=== PATIENT | female | born 1995 | race Caucasian/White ===

== ENCOUNTER 2017-04-11 14:15 | Emergency (ER) | payer BC ==
[2017-04-11 14:46] VITALS: BP 123/83
--- NOTE | 2017-04-16 07:56 | UC ---
Complaint Female HPI - HPI Summary HPI Summary: 21 YEAR OLD FEMALE THAT PRESENTS WITH SEVERE LLQ > RLQ ABDOMINAL PAIN. I WILL SEND HER TO ER TO RULE OUT TORSION VS ECTOPIC VS APPY. - History Of Current Complaint Chief Complaint: UCGI Stated Complaint: STOMACH PAIN NAUSEA Time Seen by Provider: 04/11/17 14:48 Hx Obtained From: Patient Hx Last Menstrual Period: unknown Onset/Duration: Sudden Onset Severity Initially: Moderate Severity Currently: Moderate Pain Intensity: 5 Pain Scale Used: 0-10 Numeric - 5 Character: Sharp Aggravating Factor(s): Movement Associated Signs And Symptoms: Positive: Negative - Allergies/Home Medications Allergies/Adverse Reactions: Allergies Allergy/AdvReac Type Severity Reaction Status Date / Time Meningococcal Vaccines Allergy Intermediate redness Verified 04/11/17 16:49 and swelling at injection site. Home Medications: Home Medications ALPRAZolam TAB* [Xanax TAB*] 0.5 mg PO TID PRN 04/11/17 [History Confirmed 04/11] Vortioxetine HBr [Brintellix] 50 mg PO QPM 04/11/17 [History Confirmed 04/11/17] Zolpidem TAB* [Ambien TAB*] 5 mg PO BEDTIME PRN 04/11/17 [History Confirmed ] PMH/Surg Hx/FS Hx/Imm Hx Previously Healthy: Yes - Surgical History Surgical History: Yes Surgery Procedure, Year, and Place: L ACL REPLACEMENT - Family History Known Family History: Positive: None, Cardiac Disease - MGF and maternal uncle, Hypertension - parents, Diabetes - Dad, Other - Mom with DJD and stenosis. - Social History Alcohol Use: Occasionally Substance Use Type: Marijuana Substance Use Comment - Amount & Last Used: 02/2017 Smoking Status (MU): Current Some Day Smoker - Immunization History Most Recent Influenza Vaccination: 2014 Most Recent Tetanus Shot: UTD Most Recent Pneumonia Vaccination: has not received Vaccination Up to Date: Yes Review of Systems Constitutional: Negative Skin: Negative Eyes: Negative ENT: Negative Respiratory: Negative Cardiovascular: Negative Gastrointestinal: Abdominal Pain - LLQ > RLQ Genitourinary: Negative Motor: Negative Neurovascular: Negative Musculoskeletal: Negative Neurological: Negative Psychological: Negative All Other Systems Reviewed And Are Negative: Yes Physical Exam Triage Information Reviewed: Yes Vital Signs: Initial Vital Signs Temp 36.9 C 04/11/17 14:33 Pulse 77 04/11/17 14:33 Resp 18 04/11/17 14:33 BP 123/83 04/11/17 14:33 Pulse Ox 100 04/11/17 14:33 Vital Signs Reviewed: Yes Eye Exam: Normal ENT Exam: Normal Dental Exam: Normal Neck exam: Normal Neck: Positive: 1 Respiratory Exam: Normal Cardiovascular Exam: Normal Abdomen Description: Positive: Other: - LLQ > RLQ Musculoskeletal Exam: Normal Neurological Exam: Normal Psychological Exam: Normal Skin Exam: Normal Complaint Female Dx - Differential Dx/Diagnosis Provider Diagnoses: LLQ > RLQ ABDOMINAL PAIN Discharge - Discharge Plan Condition: Stable Disposition: HOME Patient Education Materials: Abdominal Pain (ED) Referrals: Erum Sanchez MD [Primary Care Provider] - Additional Instructions: PLEASE GO TO ER TO ASSESS ABDOMINAL PAIN.
== END 2017-04-11 15:35 | disposition home or self-care (01) ==
LOC: UCCORT 14:15
DX: R10.32 Left lower quadrant pain (principal); R10.31 Right lower quadrant pain; Z32.02 Encounter for pregnancy test, result negative; Z72.0 Tobacco use
CPT/HCPCS: 81003; 84702; 99211; G0463

== ENCOUNTER 2017-04-11 16:36 | Emergency (ER) | payer BC ==
[2017-04-11] MEDS ORDERED: Ondansetron INJ* 2 MG/ML VIAL IV ONE (17:16)
[2017-04-11] MEDS ORDERED: NS 0.9% 1000 ML* 1,000 ML IV ONE (17:16)
--- NOTE | 2017-04-11 18:48 | ED ---
Fercho Heredia Angela, scribed for Samson Lopez MD on 04/11/17 at 1738 . Abdominal Pain/Female - HPI Summary HPI Summary: This pt is a 21 y/o female presenting to [facility] c/o lower and upper abd pain x3 days. Pt reports a throbbing and stabbing pain that are frequent but not constant. She notes that yesterday she had nausea, dizziness, light-headedness, low back pain, and bloating (which pushes up her diaphragm and feels SOB). Pt [facility] where she had urinalysis done and due to the results she was referred to the ED. Pt has taken ibuprofen with minimal relief. She reports having an IUD placed 2 months ago, LMP: 2 months ago due to IUD. Pt denies vaginal bleeding, vaginal discharge, diarrhea, constipation, bloody stools, urinary symptoms, dysuria, hematuria. Normal bowel movements. She states that the last time she ate was this morning, hashbrowns. - History of Current Complaint Chief Complaint: EDAbdPain Stated Complaint: ABDOMINAL PAIN CCC Time Seen by Provider: 04/11/17 17:07 Hx Obtained From: Patient Hx Last Menstrual Period: unknown Onset/Duration: Lasting Days Timing: Frequency Of Episodes - very frequent but not constant Pain Intensity: 4 Pain Scale Used: 0-10 Numeric Location: Diffuse Radiates: No Aggravating Factor(s): Nothing Alleviating Factor(s): Nothing Associated Signs and Symptoms: Positive: Back Pain - low back pain, Nausea, Vomiting. Negative: Constipation, Blood in Stool, Urinary Symptoms, Vaginal Discharge, Diarrhea Allergies/Adverse Reactions: Allergies Allergy/AdvReac Type Severity Reaction Status Date / Time Meningococcal Vaccines Allergy Intermediate redness Verified 04/11/17 16:49 and swelling at injection site. PMH/Surg Hx/FS Hx/Imm Hx Endocrine/Hematology History: Denies: Hx Diabetes Cardiovascular History: Denies: Hx Hypertension, Hx Pacemaker/ICD Respiratory History: Reports: Hx Asthma Sensory History: Denies: Hx Hearing Aid Neurological History: Reports: Hx Migraine Psychiatric History: Reports: Hx Anxiety, Hx Depression, Hx Post Traumatic Stress Disorder, Hx Community Mental Health Tx, Hx Bipolar Disorder Denies: Hx Eating Disorder, Hx Panic Disorder, Hx of Violent Episodes Against Others - Surgical History Surgery Procedure, Year, and Place: L ACL REPLACEMENT Infectious Disease History: No Infectious Disease History: Denies: Hx Clostridium Difficile, Hx Hepatitis, Hx Human Immunodeficiency Virus (HIV), Hx of Known/Suspected MRSA, Hx Shingles, Hx Tuberculosis, Hx Known/ Suspected VRE, Hx Known/Suspected VRSA, History Other Infectious Disease, Traveled Outside the [place] in Last 30 Days - Family History Known Family History: Positive: None, Cardiac Disease - MGF and maternal uncle, Hypertension - parents, Diabetes - Dad, Other - Mom with DJD and stenosis. - Social History Alcohol Use: Occasionally Substance Use Type: Reports: None, Marijuana Substance Use Comment - Amount & Last Used: 02/2017 Smoking Status (MU): Former Smoker Review of Systems Negative: Fever, Chills Positive: Shortness Of Breath - secondary to abd bloating Positive: Abdominal Pain - and abd bloating, Vomiting, Nausea. Negative: Diarrhea Positive: other - NEGATIVE: constipation. Negative: dysuria, discharge, hematuria Neurological: Other - Dizziness, light-headedness All Other Systems Reviewed And Are Negative: Yes Physical Exam Triage Information Reviewed: Yes Vital Signs On Initial Exam: Initial Vitals Temp Pulse Resp BP Pulse Ox 97.2 F 80 16 123/59 98 04/11/17 16:47 04/11/17 16:47 04/11/17 16:47 04/11/17 16:47 04/11/17 16:47 Vital Signs Reviewed: Yes Appearance: Positive: Well-Appearing Skin: Positive: Warm, Skin Color Reflects Adequate Perfusion, Dry Head/Face: Positive: Normal Head/Face Inspection Eyes: Positive: Normal ENT: Positive: Normal ENT inspection Neck: Positive: Supple, Nontender Respiratory/Lung Sounds: Positive: Clear to Auscultation, Breath Sounds Present Cardiovascular: Positive: RRR Abdomen Description: Positive: Soft, Other: - Diffuse tenderness in abdomen, worse in RLQ. No rebound. Musculoskeletal: Positive: Normal Neurological: Positive: Normal Psychiatric: Positive: Normal, Affect/Mood Appropriate - Antlers Coma Scale Coma Scale Total: 15 Diagnostics - Vital Signs Vital Signs Temp Pulse Resp BP Pulse Ox 04/11/17 16:47 97.2 F 80 16 123/59 98 - Laboratory Lab Statement: Any lab studies that have been ordered have been reviewed, and results considered in the medical decision making process. Abdominal Pain Fem Course/Dx - Course Course Of Treatment: Ms. Matute presented with abdominal pain and is currently being W/U. She is in U/S and labs will be obtained when she returns. She was tender diffusely without rebound or guarding and vitals are WNL. - Diagnoses Provider Diagnoses: Abdominal pain Discharge - Discharge Plan Condition: Stable Disposition: OTHER Discharge Disposition Comment: Change of shift The documentation as recorded by the Fercho rice Angela accurately reflects the service I personally performed and the decisions made by me, Samson Lopez MD.
--- NOTE | 2017-04-11 18:50 | RAD ---
HISTORY: Right adnexal pain COMPARISONS: None TECHNIQUE: Multiple transverse and longitudinal ultrasound images were obtained of the pelvis using grayscale, color Doppler, and spectral Doppler imaging using the endovaginal transducer. FINDINGS: UTERUS: The uterus measures 6.7 x 3.4 x 4.4 cm. The uterus is normal in shape, size, contour, and echotexture. ENDOMETRIUM: The endometrial stripe is smooth. The endometrium measures 1 cm in thickness. An IUD is noted centrally within the endometrial cavity towards the fundus. There is fluid noted within the endocervical canal. CUL-DE-SAC: There is no free fluid within the cul-de-sac. RIGHT OVARY: The right ovary measures 3.1 x 2.6 x 2.5 cm. There is a 2.6 cm simple right ovarian cyst. Normal arterial and venous waveforms are identifiable within the ovary on spectral Doppler imaging. LEFT OVARY: The left ovary measures 1.9 x 2.1 x 1.5 cm. Normal arterial and venous waveforms are identifiable within the ovary on spectral Doppler imaging. BLADDER: The bladder is not well visualized. OTHER: None IMPRESSION: 1. IUD. 2. SMALL AMOUNT OF FLUID WITHIN THE ENDOCERVICAL CANAL. 3. 2.6 CM RIGHT OVARIAN SIMPLE CYST. 4. NO SONOGRAPHIC FEATURES OF TORSION. PLEASE NOTE THAT PARTIAL OR INTERMITTENT TORSION MAY BE SONOGRAPHICALLY NORMAL.
--- NOTE | 2017-04-11 18:55 | RAD ---
HISTORY: Right lower quadrant pain COMPARISONS: None TECHNIQUE: Multiple transverse and longitudinal ultrasound images were obtained of the right lower quadrant using grayscale and color Doppler imaging. FINDINGS: The study is limited by patient body habitus. The appendix is not visualized. There is no free or loculated fluid within the right lower quadrant. IMPRESSION: THE APPENDIX IS NOT VISUALIZED. THERE IS NO FREE OR LOCULATED FLUID WITHIN THE RIGHT LOWER QUADRANT.
[2017-04-11 19:00] LABS: Hematocrit 38 % (35-47); Hemoglobin 12.6 g/dl (12.0-16.0); Mean Corpuscular HGB Conc 33 g/dl (31-36); Mean Corpuscular Hemoglobin 27 pg (27-31); Mean Corpuscular Volume 83 fL (80-97); Mean Platelet Volume 9 um3 (7.4-10.4); Red Blood Count 4.61 10^6/ul (4.0-5.4); Red Cell Distribution Width 15 % (10.5-15); White Blood Count 7.2 10^3/ul (3.5-10.8)
[2017-04-11 19:17] LABS: Albumin 3.9 g/dL (3.2-5.2); BUN/Creatinine Ratio 8.4 (8-20); C Reactive Protein 8.08 mg/L (< 5.00); Calcium 9.4 mg/dL (8.6-10.3); EGFR African American 96.5 (>60); Globulin 2.4 g/dL (2-4); Magnesium 1.8 mg/dL (1.9-2.7); Potassium 3.9 mmol/L (3.5-5.0); Total Bilirubin 0.5 mg/dL (0.2-1.0); Total Protein 6.3 g/dL (6.4-8.9)
[2017-04-11 20:27] LABS: Urine Bacteria 1+ (Absent); Urine Bilirubin Negative (Negative); Urine Glucose Negative (Negative); Urine Nitrite Negative (Negative)
[2017-04-11] MEDS ORDERED: Iohexol 300* (CONTRAST) 10 ML SDV IV ONE (20:59)
[2017-04-12 00:23] VITALS: BP 118/66
--- NOTE | 2017-04-12 07:43 | RAD ---
CLINICAL HISTORY: Abdominal pain COMPARISON: June 16, 2016 TECHNIQUE: Multiple contiguous axial CT scans were obtained of the abdomen and pelvis after the administration of intravenous contrast. Coronal and sagittal multiplanar reformations are submitted for review. Oral contrast was administered. Delayed images were obtained through the abdomen and pelvis. FINDINGS: LUNG BASES: The lung bases are clear. LIVER: The liver is diffusely low in attenuation compared to the spleen. There are no focal hepatic parenchymal masses. BILE DUCTS: There is no intrahepatic or extrahepatic biliary dilatation. GALLBLADDER: The gallbladder is normal, without pericholecystic inflammatory change. PANCREAS: The pancreas is normal, without mass or ductal dilatation. SPLEEN: Normal in size and appearance. UPPER GI TRACT: Evaluation of the gastrointestinal tract is limited by incomplete gastric distention. The upper GI tract is unremarkable. SMALL BOWEL AND MESENTERY: The small bowel is normal in contour, course, and caliber. There is no obstruction or dilatation. COLON: The colon is normal in contour, course, caliber. There is no pericolonic inflammatory change. There is a tubular, vermiform, hollow viscus that is blind ending, and originates from the cecum, consistent with a normal appendix. There is no periappendiceal inflammatory change. This is best seen on axial images 123 through 137. ADRENALS: Normal bilaterally. KIDNEYS: The kidneys are normal in shape, size, contour, and axis. There is no hydronephrosis or nephrolithiasis. BLADDER: The bladder is smooth in contour. PELVIC ORGANS: An IUD is noted. There is a 2.6 cm cyst of the right ovary. AORTA: The aorta is normal. IVC: Unremarkable LYMPH NODES: There is no lymphadenopathy by size criteria. ABDOMINAL WALL: There is no evidence for abdominal wall hernia. BONES AND SOFT TISSUES: The bones and soft tissues are unremarkable. OTHER: None IMPRESSION: 1. FATTY LIVER. 2. RIGHT OVARIAN CYST. 3. NO ACUTE CT PATHOLOGY VISUALIZED ABDOMEN OR PELVIS.
== END 2017-04-12 00:26 ==
LOC: ED 16:36
DX: R10.9 Unspecified abdominal pain (principal); M54.9 Dorsalgia, unspecified; R11.2 Nausea with vomiting, unspecified; R06.02 Shortness of breath; Z87.891 Personal history of nicotine dependence
CPT/HCPCS: 36415; 74177; 76705; 76830; 80053; 81003; 81015; 83605; 83690; 83735; 84702; 85025; 86140; 87086; 96374; 99284; J2405

== ENCOUNTER 2017-05-08 09:58 | Emergency (ER) | payer BC, OTHER ==
[2017-05-08 11:12] VITALS: BP 104/61
--- NOTE | 2017-05-08 14:01 | UC ---
Complaint Female HPI - HPI Summary HPI Summary: 22 year old female with burning with urination. Started today. No fever. No new sexual partners. No vaginal discharge. - History Of Current Complaint Chief Complaint: UCGU Stated Complaint: URINARY/PERSONAL Time Seen by Provider: 05/08/17 10:50 Hx Obtained From: Patient Hx Last Menstrual Period: IUD Onset/Duration: Sudden Onset Pain Intensity: 5 Pain Scale Used: 0-10 Numeric Associated Signs And Symptoms: Positive: Negative - Allergies/Home Medications Allergies/Adverse Reactions: Allergies Allergy/AdvReac Type Severity Reaction Status Date / Time Meningococcal Vaccines Allergy Intermediate redness Verified 05/08/17 10:44 and swelling at injection site. Home Medications: Home Medications Vortioxetine HBr [Trintellix] 50 mg QPM 05/08/17 [History Confirmed 05/08/17] PMH/Surg Hx/FS Hx/Imm Hx Previously Healthy: Yes - Surgical History Surgical History: Yes Surgery Procedure, Year, and Place: L ACL REPLACEMENT - Family History Known Family History: Positive: None, Cardiac Disease - MGF and maternal uncle, Hypertension - parents, Diabetes - Dad, Other - Mom with DJD and stenosis. - Social History Occupation: Student Lives: With Family Alcohol Use: Weekly Substance Use Type: None Substance Use Comment - Amount & Last Used: 02/2017 Smoking Status (MU): Former Smoker - Immunization History Most Recent Influenza Vaccination: 2017 Most Recent Tetanus Shot: UTD Most Recent Pneumonia Vaccination: has not received Vaccination Up to Date: Yes Review of Systems Genitourinary: Dysuria, Urgency All Other Systems Reviewed And Are Negative: Yes Physical Exam Triage Information Reviewed: Yes Appearance: Well-Appearing, No Pain Distress, Well-Nourished Vital Signs: Initial Vital Signs Temp 97.4 F 05/08/17 10:47 Pulse 68 05/08/17 10:47 Resp 16 05/08/17 10:47 BP 104/61 05/08/17 10:47 Pulse Ox 100 05/08/17 10:47 Vital Signs Reviewed: Yes Eye Exam: Normal ENT Exam: Normal Dental Exam: Normal Neck exam: Normal Neck: Positive: 1 Respiratory Exam: Normal Cardiovascular Exam: Normal Abdominal Exam: Normal Abdomen Description: Negative: CVA Tenderness (R), CVA Tenderness (L) Musculoskeletal Exam: Normal Neurological Exam: Normal Psychological Exam: Normal Skin Exam: Normal Complaint Female Dx - Course Course Of Treatment: u/a shows UTI -- start meds and f/u if any concerns . - Differential Dx/Diagnosis Differential Diagnosis/HQI/PQRI: Ureteral Stone, Urinary Tract Infection Provider Diagnoses: UTI Discharge - Discharge Plan Condition: Good Disposition: HOME Prescriptions: Ondansetron ODT TAB* [Zofran 4 MG Odt TAB*] 4 mg PO Q8H PRN #5 tab.odt PRN Reason: Nausea Phenazopyridine 200 mg (NF) [Pyridium 200 MG tab *] 200 mg PO TID #6 tab Sulfamethox/Trimethoprim DS* [Bactrim DS 800/160 TAB*] 1 tab PO BID #10 tab Patient Education Materials: Urinary Tract Infection in Women (ED) Referrals: Erum Sanchez MD [Primary Care Provider] - 4 Days
== END 2017-05-08 11:26 | disposition home or self-care (01) ==
LOC: UCCORT 09:58
DX: N39.0 Urinary tract infection, site not specified (principal); Z88.7 Allergy status to serum and vaccine; Z87.891 Personal history of nicotine dependence
CPT/HCPCS: 81003; 87086; 99212; G0463

== ENCOUNTER 2017-05-23 11:50 | Emergency (ER) | payer OTHER ==
[2017-05-23 12:01] VITALS: BP 111/58
--- NOTE | 2017-05-23 12:16 | UC ---
FLU HPI - HPI Summary HPI Summary: Pt presents with c/o nasal congestion, cough, sinus pressure and sore throat X 2 days. Unsure if has fever. Pt has had flu vaccine - History of Current Complaint Chief Complaint: UCRespiratory Stated Complaint: SORE THROAT COUGH CONGESTION Time Seen by Provider: 05/23/17 11:55 Hx Obtained From: Patient Hx Last Menstrual Period: unknown, IUD ?: No Onset/Duration: Gradual Onset, Lasting Days Severity Currently: Mild Severity Initially: Mild Associated Signs & Symptoms: Positive: Myalgia, Cough, Sore Throat, Nasal Congestion - Allergy/Home Medications Allergies/Adverse Reactions: Allergies Allergy/AdvReac Type Severity Reaction Status Date / Time Meningococcal Vaccines Allergy Intermediate redness Verified 05/23/17 12:01 and swelling at injection site. PMH/Surg Hx/FS Hx/Imm Hx Previously Healthy: Yes Respiratory History: Asthma - Surgical History Surgical History: Yes Surgery Procedure, Year, and Place: L ACL REPLACEMENT - Family History Known Family History: Positive: None, Cardiac Disease - MGF and maternal uncle, Hypertension - parents, Diabetes - Dad, Other - Mom with DJD and stenosis. - Social History Occupation: Employed Full-time Lives: With Family Alcohol Use: Occasionally Substance Use Type: None Substance Use Comment - Amount & Last Used: 02/2017 Smoking Status (MU): Never Smoked Tobacco Have You Smoked in the Last Year: No - Immunization History Most Recent Influenza Vaccination: 04/2017 Most Recent Tetanus Shot: UTD Most Recent Pneumonia Vaccination: has not received Vaccination Up to Date: Yes Review of Systems Constitutional: Fatigue, Other - myalgia Skin: Negative Eyes: Negative ENT: Sore Throat - resolved, Ear Ache, Sinus Congestion, Sinus Pain/Tenderness, Other - nasal congestion Respiratory: Cough Cardiovascular: Negative Gastrointestinal: Negative Genitourinary: Negative Motor: Negative Neurovascular: Negative Musculoskeletal: Myalgia Neurological: Headache Psychological: Negative Is Patient Immunocompromised?: No All Other Systems Reviewed And Are Negative: Yes Physical Exam Triage Information Reviewed: Yes Appearance: Well-Appearing Vital Signs: Initial Vital Signs Temp 97.8 F 05/23/17 11:57 Pulse 99 05/23/17 11:57 Resp 16 05/23/17 11:57 BP 111/58 05/23/17 11:57 Pulse Ox 100 05/23/17 11:57 Vital Signs Reviewed: Yes Eye Exam: Normal ENT Exam: Other ENT: Positive: Nasal congestion Dental Exam: Normal Neck exam: Normal Respiratory Exam: Normal Cardiovascular Exam: Normal Musculoskeletal Exam: Normal Neurological Exam: Normal Psychological Exam: Normal Skin Exam: Normal Flu Course/Dx - Differential Dx/Diagnosis Differential Diagnosis/HQI/PQRI: Influenza, Upper Respiratory Infection Provider Diagnoses: viral syndrome. cough Discharge - Discharge Plan Condition: Stable Disposition: HOME Prescriptions: Albuterol HFA INHALER* [Ventolin HFA Inhaler*] 2 puff INH Q4H PRN #1 mdi PRN Reason: cough Benzonatate CAP* [Tessalon 100 MG CAP*] 100 mg PO TID PRN #15 cap PRN Reason: Cough Pseudoephedrine-Guaifenesin [Mucinex D 60-600 mg] 1 tab PO DAILY #10 tab Patient Education Materials: Viral Syndrome (ED), Acute Cough (ED) Referrals: Erum Sanchez MD [Primary Care Provider] - If Needed
== END 2017-05-23 12:33 | disposition home or self-care (01) ==
LOC: UCCORT 11:50
DX: B34.9 Viral infection, unspecified (principal); R05 Cough; Z88.7 Allergy status to serum and vaccine
CPT/HCPCS: 99212; G0463

== ENCOUNTER 2017-05-31 17:00 | Emergency (ER) | payer OTHER ==
[2017-05-31 17:31] VITALS: BP 115/52
--- NOTE | 2017-05-31 18:42 | UC ---
Respiratory Complaint HPI - HPI Summary HPI Summary: Patient has a lingering spastic cough for the past 2 weeks, all other symtpoms of her URI have cleared up. - History of Current Complaint Chief Complaint: UCGeneralIllness Stated Complaint: COUGH Time Seen by Provider: 05/31/17 18:11 Hx Obtained From: Patient Hx Last Menstrual Period: IUD ?: No Onset/Duration: Sudden Onset, Lasting Weeks Timing: Constant Severity Initially: Mild Severity Currently: Moderate Character: Cough: Nonproductive Aggravating Factors: Exertion, Deep Breaths, Recumbent Position Alleviating Factors: Nothing Associated Signs And Symptoms: Positive: Wheezing - Allergies/Home Medications Allergies/Adverse Reactions: Allergies Allergy/AdvReac Type Severity Reaction Status Date / Time Meningococcal Vaccines Allergy Intermediate redness Verified 05/31/17 17:32 and swelling at injection site. PMH/Surg Hx/FS Hx/Imm Hx Previously Healthy: Yes - Surgical History Surgical History: Yes Surgery Procedure, Year, and Place: L ACL REPLACEMENT - Family History Known Family History: Positive: None, Cardiac Disease - MGF and maternal uncle, Hypertension - parents, Diabetes - Dad, Other - Mom with DJD and stenosis. - Social History Alcohol Use: Occasionally Substance Use Type: None Substance Use Comment - Amount & Last Used: 02/2017 Smoking Status (MU): Never Smoked Tobacco Have You Smoked in the Last Year: No - Immunization History Most Recent Influenza Vaccination: 04/2017 Most Recent Tetanus Shot: UTD Most Recent Pneumonia Vaccination: has not received Vaccination Up to Date: Yes Review of Systems Constitutional: Negative Skin: Negative Eyes: Negative ENT: Negative Respiratory: Cough Cardiovascular: Negative Gastrointestinal: Negative Genitourinary: Negative Motor: Negative Neurovascular: Negative Musculoskeletal: Negative Neurological: Negative Psychological: Negative Is Patient Immunocompromised?: No All Other Systems Reviewed And Are Negative: Yes Physical Exam Triage Information Reviewed: Yes Appearance: Well-Appearing, Well-Nourished, Pain Distress Vital Signs: Initial Vital Signs Temp 97.4 F 05/31/17 17:25 Pulse 85 05/31/17 17:25 Resp 16 05/31/17 17:25 BP 115/52 05/31/17 17:25 Pulse Ox 100 05/31/17 17:25 Vital Signs Reviewed: Yes Eye Exam: Normal ENT: Positive: Pharynx normal, TMs normal Dental Exam: Normal Neck exam: Normal Neck: Positive: Supple, Nontender, No Lymphadenopathy Respiratory: Positive: Chest non-tender, Lungs clear, Normal breath sounds, Other: - persistant dry cough Cardiovascular Exam: Normal Cardiovascular: Positive: RRR, No Murmur, Pulses Normal Abdominal Exam: Normal Abdomen Description: Positive: Nontender, No Organomegaly, Soft Bowel Sounds: Positive: Present Musculoskeletal Exam: Normal Musculoskeletal: Positive: Strength Intact, ROM Intact, No Edema Neurological Exam: Normal Neurological: Positive: Alert, Muscle Tone Normal Psychological Exam: Normal Skin Exam: Normal UC Diagnostic Evaluation - Laboratory O2 Sat by Pulse Oximetry: 100 Respiratory Course/Dx - Course Course Of Treatment: hx obtained, exam performed ,meds reviewed, treated for bronchospasm - Differential Dx/Diagnosis Differential Diagnosis/HQI/PQRI: Asthma, Bronchitis, Laryngitis, Sinusitis Provider Diagnoses: bronchospasm. URI Discharge - Discharge Plan Condition: Stable Disposition: HOME Prescriptions: predniSONE TAB* [Deltasone TAB*] 40 mg PO DAILY #14 tab Patient Education Materials: Bronchospasm (ED) Referrals: Erum Sanchez MD [Primary Care Provider] - Additional Instructions: 1. continue with your albuterol and start the prednisone in the morning 2. COntinue with increase fluids. 3. A daily antihistamine may also help.
== END 2017-05-31 18:43 | disposition home or self-care (01) ==
LOC: UCCORT 17:00
DX: J06.9 Acute upper respiratory infection, unspecified (principal); J98.01 Acute bronchospasm; Z88.7 Allergy status to serum and vaccine
CPT/HCPCS: 99212; G0463

== ENCOUNTER 2017-06-09 16:43 | Emergency (ER) | payer OTHER ==
--- NOTE | 2017-06-09 18:03 | ED ---
Respiratory - HPI Summary HPI Summary: 22 yr old female with the complaint of right sided chest pain. HPI: The patient 3 weeks ago began to get runny nose, sore throat, and sinus congestion. She then began to cough a few days later. She has been coughing a lot and about 5 days ago she began to get pain in the right anterior chest with coughing and now she has pain that goes all the way around right lower ribs into her back. Pain worse with coughing and breathing. Denies SOB. The patient has a history of asthma, and bipolar. She does not get her periods as she has an IUD. She denies smoking. She has been coughing up yellow sputum. Denies leg pain or swelling. - History of Current Complaint Chief Complaint: UCGeneralIllness Stated Complaint: COUGH/BACK PAIN/RIB PAIN Time Seen by Provider: 06/09/17 17:44 - Allergy/Home Medications Allergies/Adverse Reactions: Allergies Allergy/AdvReac Type Severity Reaction Status Date / Time Meningococcal Vaccines Allergy Intermediate redness Verified 06/09/17 17:14 and swelling at injection site. PMH/Surg Hx/FS Hx/Imm Hx Previously Healthy: Yes Endocrine/Hematology History: Denies: Hx Diabetes Cardiovascular History: Denies: Hx Hypertension, Hx Pacemaker/ICD Respiratory History: Reports: Hx Asthma Sensory History: Denies: Hx Hearing Aid Neurological History: Reports: Hx Migraine Psychiatric History: Reports: Hx Anxiety, Hx Depression, Hx Post Traumatic Stress Disorder, Hx Community Mental Health Tx, Hx Bipolar Disorder Denies: Hx Eating Disorder, Hx Panic Disorder, Hx of Violent Episodes Against Others - Surgical History Surgery Procedure, Year, and Place: L ACL REPLACEMENT Infectious Disease History: No Infectious Disease History: Denies: Hx Clostridium Difficile, Hx Hepatitis, Hx Human Immunodeficiency Virus (HIV), Hx of Known/Suspected MRSA, Hx Shingles, Hx Tuberculosis, Hx Known/ Suspected VRE, Hx Known/Suspected VRSA, History Other Infectious Disease, Traveled Outside the [place] in Last 30 Days - Family History Known Family History: Positive: None, Cardiac Disease - MGF and maternal uncle, Hypertension - parents, Diabetes - Dad, Other - Mom with DJD and stenosis. - Social History Alcohol Use: Occasionally Substance Use Type: Reports: None Substance Use Comment - Amount & Last Used: 02/2017 Smoking Status (MU): Never Smoked Tobacco Have You Smoked in the Last Year: No Review of Systems Constitutional: Negative Eyes: Negative Positive: Sore Throat, Nasal Discharge Positive: Chest Pain - with breathing and coughing. Positive: Cough. Negative: Shortness Of Breath Positive: Other - right sided chest pain, coughing Skin: Negative Neurological: Negative Psychological: Normal All Other Systems Reviewed And Are Negative: Yes Physical Exam Triage Information Reviewed: Yes Vital Signs On Initial Exam: Initial Vitals Temp Pulse Resp BP Pulse Ox 97.7 F 87 17 105/58 100 06/09/17 17:05 06/09/17 17:05 06/09/17 17:05 06/09/17 17:05 06/09/17 17:05 Vital Signs Reviewed: Yes Appearance: Positive: Well-Appearing, No Pain Distress Skin: Positive: Warm, Other - no rash Head/Face: Positive: Normal Head/Face Inspection Eyes: Positive: EOMI ENT: Positive: Normal ENT inspection Neck: Positive: Supple, Nontender Respiratory/Lung Sounds: Positive: Clear to Auscultation, Breath Sounds Present , Other - tender right side of chest Cardiovascular: Positive: RRR. Negative: Murmur Abdomen Description: Positive: Nontender, Other: - obese Musculoskeletal: Positive: Strength/ROM Intact. Negative: Edema Left, Edema Right Neurological: Positive: Sensory/Motor Intact, Alert, Oriented to Person Place, Time, CN Intact II-III Psychiatric: Positive: Normal, Affect/Mood Appropriate - Brandi Coma Scale Best Eye Response: 4 - Spontaneous Best Motor Response: 6 - Obeys Commands Best Verbal Response: 5 - Oriented Diagnostics - Vital Signs Vital Signs Temp Pulse Resp BP Pulse Ox 06/09/17 17:05 97.7 F 87 17 105/58 100 - Laboratory Lab Statement: Any lab studies that have been ordered have been reviewed, and results considered in the medical decision making process. - Radiology chest/rib Xray Interpretation: No Acute Changes Radiology Interpretation Completed By: Radiologist Re-Evaluation - Re-Evaluation First Eval Change: Worse - complains of pain worsening right side of chest. Disposition - Course Course Of Treatment: 22 yr old with pain worsening. Lungs remain clear. getting EKG. morphine given. Sending to [facility]. Dr Germán Madrigal. - Diagnoses Provider Diagnoses: Cough, Chest pain Discharge - Discharge Plan Condition: Good Disposition: TRANS HIGHER LVL OF CARE FAC Referrals: Erum Sanchez MD [Primary Care Provider] -
--- NOTE | 2017-06-09 19:06 | RAD ---
INDICATION: Rib pain COMPARISON: None TECHNIQUE: Multiple views of the ribs were obtained. FINDINGS: Bones: There is no evidence of acute rib fracture. LUNGS: The lungs are clear. There is no pneumothorax. Pleural spaces: There is no evidence of hemothorax. Other: None IMPRESSION: NEGATIVE EXAMINATION.
[2017-06-09] MEDS ORDERED: Morphine INJ* 2 MG/ML 1 ML CARPUJECT IV ONE (19:20)
[2017-06-09 19:34] VITALS: BP 121/63
== END 2017-06-09 19:38 | disposition short-term general hospital (02) ==
LOC: UCCORT 16:43
DX: R07.9 Chest pain, unspecified (principal); R05 Cough; F41.9 Anxiety disorder, unspecified; F32.9 Major depressive disorder, single episode, unspecified; F43.10 Post-traumatic stress disorder, unspecified
CPT/HCPCS: 93005; 96374; 99213; G0463; J2270

== ENCOUNTER 2017-08-10 14:18 | Emergency (ER) | payer OTHER ==
--- NOTE | 2017-08-10 14:30 | UC ---
Nausea/Vomiting/Diarrhea HPI - HPI Summary HPI Summary: 22 year old male presents with complains of nausea and abdominal pain. - History of Current Complaint Stated Complaint: NAUSEA Time Seen by Provider: 08/10/17 14:30 Hx Obtained From: Patient Hx Last Menstrual Period: has IUD Onset/Duration: Sudden Onset Severity Initially: Moderate Severity Currently: Moderate Pain Scale Used: 0-10 Numeric - 7 - Allergies/Home Medications Allergies/Adverse Reactions: Allergies Allergy/AdvReac Type Severity Reaction Status Date / Time Meningococcal Vaccines Allergy Intermediate redness Verified 08/10/17 14:41 and swelling at injection site. Home Medications: Home Medications Ondansetron [Zofran 4 MG Odt] 4 mg PO PRN 08/10/17 [History] PMH/Surg Hx/FS Hx/Imm Hx Previously Healthy: Yes - Surgical History Surgical History: Yes Surgery Procedure, Year, and Place: L ACL REPLACEMENT - Family History Known Family History: Positive: None, Cardiac Disease - MGF and maternal uncle, Hypertension - parents, Diabetes - Dad, Other - Mom with DJD and stenosis. - Social History Alcohol Use: Occasionally Substance Use Type: None Substance Use Comment - Amount & Last Used: 02/2017 Smoking Status (MU): Never Smoked Tobacco Have You Smoked in the Last Year: No - Immunization History Most Recent Influenza Vaccination: 04/2017 Most Recent Tetanus Shot: UTD Most Recent Pneumonia Vaccination: has not received Vaccination Up to Date: Yes Review of Systems Constitutional: Negative Skin: Negative Eyes: Negative ENT: Negative Respiratory: Negative Cardiovascular: Negative Gastrointestinal: Abdominal Pain - ruq pain Genitourinary: Negative Motor: Negative Neurovascular: Negative Musculoskeletal: Negative Neurological: Negative Psychological: Negative All Other Systems Reviewed And Are Negative: Yes Physical Exam Triage Information Reviewed: Yes Vital Signs Reviewed: Yes Eye Exam: Normal ENT Exam: Normal Dental Exam: Normal Neck exam: Normal Neck: Positive: 1 Respiratory Exam: Normal Cardiovascular Exam: Normal Abdomen Description: Positive: Other: - ruq pain Musculoskeletal Exam: Normal Neurological Exam: Normal Psychological Exam: Normal Skin Exam: Normal Naus/Vom/Diarrhea Course/Dx - Differential Dx/Diagnosis Differential Diagnoses - Female: Cholecystitis Provider Diagnoses: ruq pain Condition At Discharge: Stable Discharge - Discharge Plan Condition: Stable Disposition: OTHER Discharge Disposition Comment: patient suggested to go to the er. Patient Education Materials: Cholecystitis (ED), Acute Nausea and Vomiting (ED) Referrals: No Primary Care Phys,NOPCP [Primary Care Provider] - Additional Instructions: patient suggested to go to the er for ruq pain
[2017-08-10 14:50] VITALS: BP 116/60
== END 2017-08-10 15:38 ==
LOC: UCCORT 14:18
DX: R10.11 Right upper quadrant pain (principal)
CPT/HCPCS: 87502; 99212; G0463

== ENCOUNTER 2018-01-07 11:50 | Emergency (ER) | payer OTHER ==
[2018-01-07 12:35] VITALS: BP 121/60
--- NOTE | 2018-01-07 13:04 | UC ---
Throat Pain/Nasal Erasmo HPI - HPI Summary HPI Summary: sore throat for two days. Fever as well. She works at a daycare. - History of Current Complaint Chief Complaint: UCRespiratory Stated Complaint: FEVER/ST Time Seen by Provider: 01/07/18 12:41 Hx Obtained From: Patient Hx Last Menstrual Period: unknown Onset/Duration: Gradual Onset, Lasting Days, Still Present Severity: Moderate Pain Intensity: 6 Cough: Nonproductive Associated Signs & Symptoms: Positive: Dysphagia, Fever. Negative: Sinus Discomfort, Nasal Discharge, Rash - Epiglottits Risk Factors Epiglottis Risk Factors: Negative - Allergies/Home Medications Allergies/Adverse Reactions: Allergies Allergy/AdvReac Type Severity Reaction Status Date / Time meningococcal vaccine A and C Allergy See Comment Verified 01/07/18 12:27 Home Medications: Home Medications Acetaminophen 650 mg PO Q4H PRN 01/07/18 [History Confirmed 01/07/18] Levonorgestrel (Iud) [Liletta IUD] 18.6 mcg IU ONCE 01/07/18 [History Confirmed 01/07/18] PMH/Surg Hx/FS Hx/Imm Hx Previously Healthy: Yes - Surgical History Surgical History: Yes Surgery Procedure, Year, and Place: L ACL REPLACEMENT - Family History Known Family History: Positive: None, Cardiac Disease - MGF and maternal uncle, Hypertension - parents, Diabetes - Dad, Other - Mom with DJD and stenosis. - Social History Occupation: Employed Full-time Alcohol Use: Occasionally Substance Use Type: Marijuana Substance Use Comment - Amount & Last Used: but not in a while Smoking Status (MU): Never Smoked Tobacco Have You Smoked in the Last Year: No - Immunization History Most Recent Influenza Vaccination: 04/2017 Most Recent Tetanus Shot: UTD Most Recent Pneumonia Vaccination: has not received Vaccination Up to Date: Yes Review of Systems ENT: Sore Throat All Other Systems Reviewed And Are Negative: Yes Physical Exam Triage Information Reviewed: Yes Appearance: Well-Appearing, No Pain Distress, Obese Vital Signs: Initial Vital Signs Temp 99.4 F 01/07/18 12:29 Pulse 102 01/07/18 12:29 Resp 20 01/07/18 12:29 BP 121/60 01/07/18 12:29 Pulse Ox 99 01/07/18 12:29 Vital Signs Reviewed: Yes Eyes: Positive: Conjunctiva Clear ENT: Positive: Pharyngeal erythema, TMs normal, Tonsillar swelling, Tonsillar exudate, Uvula midline. Negative: Nasal congestion, Nasal drainage, TM bulging , TM dull, TM red, Trismus, Muffled voice, Sinus tenderness Neck: Positive: Supple, Nontender, Other: - aiden submandibular adenopathy. Respiratory: Positive: Lungs clear, Normal breath sounds, No respiratory distress, No accessory muscle use. Negative: Respiratory distress, Decreased breath sounds, Accessory muscle use, Crackles, Rhonchi, Stridor, Wheezing Cardiovascular: Positive: No Murmur, Pulses Normal, Brisk Capillary Refill Abdomen Description: Positive: No Organomegaly, Soft. Negative: Distended, Guarding Musculoskeletal: Positive: Strength Intact, ROM Intact, No Edema Neurological: Positive: Alert, Muscle Tone Normal. Negative: Fatigued Psychological: Positive: Age Appropriate Behavior Skin: Positive: rashes Throat Pain/Nasal Course/Dx - Course Course Of Treatment: strep neg however she has classic symptoms and signs of bacterial pharyngitis. We will treat. work note given. - Differential Dx/Diagnosis Provider Diagnoses: bacterial pharyngitis. Discharge - Sign-Out/Discharge Documenting (check all that apply): Discharge/Admit/Transfer - Discharge Plan Condition: Good Disposition: HOME Prescriptions: Amoxicillin PO (*) [Amoxicillin 875 MG (*)] 875 mg PO BID #20 tab Patient Education Materials: Pharyngitis (ED) Forms: *Work Release Referrals: Jacinda Solano NP [Primary Care Provider] - - Billing Disposition and Condition Condition: GOOD Disposition: HOME
== END 2018-01-07 13:05 | disposition home or self-care (01) ==
LOC: UCCORT 11:50
DX: J02.9 Acute pharyngitis, unspecified (principal); J02.8 Acute pharyngitis due to other specified organisms; B96.89 Other specified bacterial agents as the cause of diseases classified elsewhere; Z88.7 Allergy status to serum and vaccine
CPT/HCPCS: 87651; 99212; G0463

== ENCOUNTER 2018-01-09 11:31 | Emergency (ER) | payer OTHER ==
[2018-01-09 11:49] VITALS: BP 103/60
--- NOTE | 2018-01-09 12:19 | UC ---
Throat Pain/Nasal Erasmo HPI - HPI Summary HPI Summary: 22 y/o female presents to the urgent care c/o sore throat for the past week. Pt reports she was seen here at the clinic and Dx w/ pharyngitis and Rx Amoxicillin PO 875mg mg PO BID. However her her symptoms are worsening and her mother just told her that amoxicillin or Z-maximo has never worked for her. Pt request another medication. She states sore throat is worse, pain is 8/10 and RT ear pain. She has also taking Ibuprofen 400mg PO and she hasn't had any fever or chills since 01/07/2018 and her body aches and BARTON has improved. Pt denies SOB, chest pain, abdominal pain, N/V/D. - History of Current Complaint Chief Complaint: UCRespiratory Stated Complaint: SORE THROAT Time Seen by Provider: 01/09/18 12:14 Hx Obtained From: Patient Hx Last Menstrual Period: DOES NOT HAVE REG PERIODS. HAS AN IUD ?: No Onset/Duration: Gradual Onset, Lasting Weeks - 1 week, Still Present, Worse Since - 2 days Severity: Moderate Pain Intensity: 8 Pain Scale Used: 0-10 Numeric Cough: None Associated Signs & Symptoms: Positive: Dysphagia, Fever - Epiglottits Risk Factors Epiglottis Risk Factors: Negative - Allergies/Home Medications Allergies/Adverse Reactions: Allergies Allergy/AdvReac Type Severity Reaction Status Date / Time meningococcal vaccine A and C Allergy See Comment Verified 01/09/18 11:41 PMH/Surg Hx/FS Hx/Imm Hx Previously Healthy: Yes Respiratory History: Asthma Neurological History: Migraine Psychological History: Anxiety, Depression - Surgical History Surgical History: Yes Surgery Procedure, Year, and Place: L ACL REPLACEMENT - Family History Known Family History: Positive: Cardiac Disease - MGF and maternal uncle, Hypertension - parents, Diabetes - Dad Family History: Mom with DJD and stenosis. - Social History Occupation: Student Lives: Dormitory/Roommates Alcohol Use: Occasionally Substance Use Type: Marijuana Substance Use Comment - Amount & Last Used: but not in a while Smoking Status (MU): Never Smoked Tobacco Have You Smoked in the Last Year: No - Immunization History Most Recent Influenza Vaccination: 04/2017 Most Recent Tetanus Shot: UTD Most Recent Pneumonia Vaccination: has not received Vaccination Up to Date: Yes Review of Systems Constitutional: Negative Skin: Negative Eyes: Negative ENT: Sore Throat, Ear Ache - RT ear Respiratory: Negative Cardiovascular: Negative Gastrointestinal: Negative Genitourinary: Negative Motor: Negative Neurovascular: Negative Musculoskeletal: Negative Neurological: Negative Psychological: Negative Is Patient Immunocompromised?: No All Other Systems Reviewed And Are Negative: Yes Physical Exam - Summary Physical Exam Summary: Vital signs: reviewed General: well developed, well nourished female sitting in the examining table w/ o any apparent distress Skin: [place], warm and dry, no evidence of atopic dermatitis, psoriasis, seborrhea. HEENT: -Head: atraumatic, non tender; no scalp dermatitis. -Eyes: sclera and conjunctiva clear, PERRLA, EOMI -Ears: no pre- or postauricular lymphadenopathy or erythema; RT external ear canal clear, Rt TM injected w/ erythemaand mild yellowish discharge, LF external ear canal clear and LF TM WNL. No perforation. -Nose/Face: erythematous and edematous nasal mucosa with clear rhinorrhea, no frontal or maxillary sinus tender to palpation. -Mouth/Throat: Mucous membrane moist, posterior pharynx w/ erythema and mild exudate, no B/L tonsillar enlargement. Neck: supple, FROM, nontender, no lymphadenopathy, no meningismus. Chest: Clear to auscultation, normal breath sounds Abd: soft, Bowel sounds active, Nontender. Back: no spinal or CVAT Neuro: A&O x4, GCS 15, no focal neuro deficits, normal behavior for age. Triage Information Reviewed: Yes Vital Signs: Initial Vital Signs Temp 97.4 F 01/09/18 11:42 Pulse 79 01/09/18 11:42 Resp 16 01/09/18 11:42 BP 103/60 01/09/18 11:42 Pulse Ox 99 01/09/18 11:42 Throat Pain/Nasal Course/Dx - Course Course Of Treatment: 22 y/o female presents to the urgent care c/o sore throat for the past week. Pt reports she was seen here at the clinic and Dx w/ pharyngitis and Rx Amoxicillin PO 875mg mg PO BID. However her her symptoms are worsening and her mother just told her that amoxicillin or Z-maximo has never worked for her. Pt request another medication. She states sore throat is worse , pain is 8/10 and RT ear pain. She has also taking Ibuprofen 400mg PO and she hasn't had any fever or chills since 01/07/2018 and her body aches and BARTON has improved. Pt denies SOB, chest pain, abdominal pain, N/V/D. Pt w/ a pharyngitis and RT otitis media on examination. Pt Rx Doxycycline PO. PT Advised to continue w/Ibuprofen to alleviate symptoms. if symptoms do not improve or worsen to return to the urgent care or f/u with PCP for further management. PT understood and agreed with D/C plan. - Differential Dx/Diagnosis Differential Diagnosis/HQI/PQRI: Laryngitis, Mononucleosis, Pharyngitis, Sinusitis, Tonsillitis, URI, Other - otitis media or externa Provider Diagnoses: 1- Acute Rt otitis Media. 2-Pharyngitis Discharge - Sign-Out/Discharge Documenting (check all that apply): Discharge/Admit/Transfer - D/C home - Discharge Plan Condition: Stable Disposition: HOME Prescriptions: DOXYcycline CAP(*) [DOXYcycline 100MG CAP(*)] 100 mg PO BID #14 cap Ibuprofen TAB* [Motrin TAB* 800 MG] 800 mg PO Q6H PRN #20 tab PRN Reason: Sore Throat Patient Education Materials: Pharyngitis (ED), Ear Infection (ED) Referrals: Jacinda Solano NURSING SERVICE DIRECTOR [Primary Care Provider] - 3 Days Additional Instructions: 1- Please take the full course of the antibiotic to avoid resistance, Stop amoxicillin since it doen't work for you. 2-Please take ibuprofen PO q6-8hrs prn as instructed after meals to alleviate pain and swelling. Increase fluid intake, eat well, rest and avoid strenuous exercise 3-If symptoms do not improve or worsen please return to the urgent care or f/u with your PCP 2-3 days for further evaluation and treatment. - Billing Disposition and Condition Condition: STABLE Disposition: HOME
== END 2018-01-09 13:04 | disposition home or self-care (01) ==
LOC: UCCORT 11:31
DX: J02.9 Acute pharyngitis, unspecified (principal); H66.91 Otitis media, unspecified, right ear; Z88.7 Allergy status to serum and vaccine
CPT/HCPCS: 99212; G0463

== ENCOUNTER 2018-02-10 10:09 | Emergency (ER) | payer OTHER ==
[2018-02-10 10:39] VITALS: BP 110/61
--- NOTE | 2018-02-10 10:43 | UC ---
Complaint Female HPI - HPI Summary HPI Summary: Patient presents complaining of frequency urgency and burning with urination. Onset this morning. She also notes some subjective fever, chills and bladder spasms/cramping. She denies any nausea vomiting diarrhea. She denies any concern for pelvic infection. She's had urinary tract infections in the past and this feels the same. - History Of Current Complaint Stated Complaint: URINARY Time Seen by Provider: 02/10/18 10:35 Hx Obtained From: Patient Hx Last Menstrual Period: DOES NOT HAVE REG PERIODS. HAS AN IUD ?: No Onset/Duration: Gradual Onset Timing: Constant Aggravating Factor(s): Nothing Alleviating Factor(s): Nothing Associated Signs And Symptoms: Negative: Fever, Vaginal Bleeding/Discharge, Vaginal Discharge - Allergies/Home Medications Allergies/Adverse Reactions: Allergies Allergy/AdvReac Type Severity Reaction Status Date / Time meningococcal vaccine A and C Allergy See Comment Verified 02/10/18 10:34 PMH/Surg Hx/FS Hx/Imm Hx Psychological History: Anxiety, Bipolar Disorder - Surgical History Surgical History: Yes Surgery Procedure, Year, and Place: L ACL REPLACEMENT - Family History Known Family History: Positive: None, Cardiac Disease - MGF and maternal uncle, Hypertension - parents, Diabetes - Dad, Other - Mom with DJD and stenosis. Family History: Mom with DJD and stenosis. - Social History Occupation: Employed Full-time Lives: With Family Alcohol Use: Occasionally Substance Use Type: Marijuana Substance Use Comment - Amount & Last Used: but not in a while Smoking Status (MU): Never Smoked Tobacco Have You Smoked in the Last Year: No - Immunization History Most Recent Influenza Vaccination: 04/2017 Most Recent Tetanus Shot: UTD Most Recent Pneumonia Vaccination: has not received Vaccination Up to Date: Yes Review of Systems Constitutional: Fever, Chills Skin: Negative Eyes: Negative ENT: Negative Respiratory: Negative Cardiovascular: Negative Gastrointestinal: Negative Genitourinary: Dysuria, Frequency, Urgency Motor: Negative Neurovascular: Negative Musculoskeletal: Negative Neurological: Negative Psychological: Negative Is Patient Immunocompromised?: No All Other Systems Reviewed And Are Negative: Yes Physical Exam Triage Information Reviewed: Yes Appearance: Well-Appearing Vital Signs Reviewed: Yes Eyes: Positive: Conjunctiva Clear ENT: Positive: Normal ENT inspection Neck: Positive: Supple Respiratory: Positive: Lungs clear, Normal breath sounds Cardiovascular: Positive: RRR, No Murmur Abdomen Description: Positive: Nontender, No Organomegaly, Soft. Negative: CVA Tenderness (R), CVA Tenderness (L), Distended, Guarding Bowel Sounds: Positive: Present Musculoskeletal: Positive: ROM Intact Neurological: Positive: Alert Psychological: Positive: Age Appropriate Behavior Skin Exam: Normal Diagnostics - Laboratory Diagnostic Studies Completed/Ordered: hcg=neg, U/a + blood/leukocytes with culture pending Complaint Female Dx - Course Course Of Treatment: no concern for pyelonephritis - Differential Dx/Diagnosis Provider Diagnoses: UTI Discharge - Sign-Out/Discharge Documenting (check all that apply): Discharge/Admit/Transfer - Discharge Plan Condition: Stable Disposition: HOME Prescriptions: Nitrofurantoin Monohyd/M-Cryst [Macrobid 100 mg Capsule] 100 mg PO BID #10 cap Patient Education Materials: Urinary Tract Infection in Women (ED) Forms: *Work Release Referrals: Jacinda Solano NP [Primary Care Provider] - 7 Days - Billing Disposition and Condition Condition: STABLE Disposition: Home
--- NOTE | 2018-02-12 11:29 | UC ---
- Progress Note Progress Note: neg culture can stop macrobid recheck prn Discharge - Sign-Out/Discharge Documenting (check all that apply): Discharge/Admit/Transfer - Discharge Plan Condition: Stable Disposition: HOME Prescriptions: Nitrofurantoin Monohyd/M-Cryst [Macrobid 100 mg Capsule] 100 mg PO BID #10 cap Patient Education Materials: Urinary Tract Infection in Women (ED) Forms: *Work Release Referrals: Jacinda Solano NP [Primary Care Provider] - 7 Days - Billing Disposition and Condition Condition: STABLE Disposition: Home
== END 2018-02-10 11:00 | disposition home or self-care (01) ==
LOC: UCCORT 10:09
DX: N39.0 Urinary tract infection, site not specified (principal)
CPT/HCPCS: 81003; 84702; 87086; 99212; G0463

== ENCOUNTER 2018-12-15 07:45 | Emergency (ER) | payer OTHER ==
[2018-12-15 07:55] VITALS: BP 127/65
--- NOTE | 2018-12-15 08:05 | UC ---
Throat Pain/Nasal Erasmo HPI - HPI Summary HPI Summary: sore throat x 1 days bilateral ear pain right more that left , nasal congestion, cough , body aches, no fever, + chills - History of Current Complaint Chief Complaint: UCGeneralIllness Stated Complaint: ST,RT EAR PAIN Time Seen by Provider: 12/15/18 07:59 Hx Obtained From: Patient Hx Last Menstrual Period: IUD ?: No Onset/Duration: Gradual Onset, Lasting Days - 1, Still Present Severity: Severe Pain Intensity: 3 Cough: Nonproductive Associated Signs & Symptoms: Positive: Sinus Discomfort, Nasal Discharge. Negative: Dysphagia, FB Sensation, Drooling, Wheezing, Hoarseness, Fever, Vomiting - Allergies/Home Medications Allergies/Adverse Reactions: Allergies Allergy/AdvReac Type Severity Reaction Status Date / Time meningococcal vaccine A and C Allergy See Comment Verified 02/10/18 10:34 PMH/Surg Hx/FS Hx/Imm Hx Previously Healthy: Yes - Surgical History Surgical History: Yes Surgery Procedure, Year, and Place: L ACL REPLACEMENT - Family History Known Family History: Positive: None, Cardiac Disease - MGF and maternal uncle, Hypertension - parents, Diabetes - Dad, Other - Mom with DJD and stenosis. Family History: Mom with DJD and stenosis. - Social History Alcohol Use: Occasionally Substance Use Type: Marijuana Substance Use Comment - Amount & Last Used: but not in a while Smoking Status (MU): Never Smoked Tobacco Have You Smoked in the Last Year: No - Immunization History Most Recent Influenza Vaccination: 04/2017 Most Recent Tetanus Shot: UTD Most Recent Pneumonia Vaccination: has not received Vaccination Up to Date: Yes Review of Systems All Other Systems Reviewed And Are Negative: Yes Constitutional: Positive: Chills, Fatigue Skin: Positive: Negative Eyes: Positive: Negative ENT: Positive: Sore Throat, Nasal Discharge Respiratory: Positive: Cough Cardiovascular: Positive: Negative Is Patient Immunocompromised?: No Physical Exam Triage Information Reviewed: Yes Appearance: Well-Appearing, No Pain Distress, Well-Nourished Vital Signs: Initial Vital Signs Temp 98.1 F 12/15/18 07:51 Pulse 107 12/15/18 07:51 Resp 18 12/15/18 07:51 BP 127/65 12/15/18 07:51 Pulse Ox 99 12/15/18 07:51 Vital Signs Reviewed: Yes Eye Exam: Normal Eyes: Positive: Conjunctiva Clear ENT: Positive: Normal ENT inspection, Hearing grossly normal, Pharyngeal erythema, Nasal congestion, TMs normal. Negative: Nasal drainage, TM bulging, TM dull, TM red, Tonsillar swelling, Tonsillar exudate Neck: Positive: Supple, Nontender, No Lymphadenopathy Respiratory: Positive: Chest non-tender, Lungs clear, Normal breath sounds Cardiovascular: Positive: RRR, No Murmur, Pulses Normal Abdominal Exam: Normal Skin Exam: Normal Throat Pain/Nasal Course/Dx - Differential Dx/Diagnosis Provider Diagnosis: URI (upper respiratory infection) Discharge - Sign-Out/Discharge Documenting (check all that apply): Patient Departure All imaging exams completed and their final reports reviewed: No Studies - Discharge Plan Condition: Stable Disposition: HOME Patient Education Materials: Upper Respiratory Infection (DC) Referrals: Jacinda Solano NP [Primary Care Provider] - If Needed - Billing Disposition and Condition Condition: STABLE Disposition: Home
== END 2018-12-15 08:16 | disposition home or self-care (01) ==
LOC: UCCORT 07:45
DX: J06.9 Acute upper respiratory infection, unspecified (principal); H92.03 Otalgia, bilateral; R09.81 Nasal congestion; J02.9 Acute pharyngitis, unspecified; Z88.7 Allergy status to serum and vaccine
CPT/HCPCS: 87651; 99211; G0463